=== PATIENT | male | born 1955 | race Caucasian/White ===

== ENCOUNTER 2018-03-04 05:15 | Inpatient (IN) | payer BC, OTHER ==
[~2018-03-04] VITALS: Ht 175.3 cm; Wt 69.9 kg
[2018-03-04] MEDS ORDERED: FAMOTIDINE 20 MG/2 ML ONE (05:40)
[2018-03-04] MEDS ORDERED: DIPHENHYDRAMINE 50 MG/ML, 1ML ONE (05:40)
[2018-03-04] MEDS ORDERED: FAMOTIDINE 20 MG TABLET ONE (05:53)
[2018-03-04] MEDS ORDERED: DIPHENHYDRAMINE 50 MG CAPSULE ONE (05:53)
[2018-03-04] MEDS ORDERED: FAMOTIDINE 20 MG TABLET PO ONE (06:00)
[2018-03-04] MEDS ORDERED: DIPHENHYDRAMINE 25 MG CAPSULE PO ONE (06:00)
[2018-03-04] MEDS ORDERED: HYDROmorphone 1 MG/ML, 1ML ONE (08:15)
[2018-03-04] MEDS ORDERED: ONDANSETRON ODT 4 MG ONE (08:17)
[2018-03-04] MEDS ORDERED: AMLO5TAB2 PO (08:29)
[2018-03-04] MEDS ORDERED: LISI1TAB7 PO (08:29)
[2018-03-04] MEDS ORDERED: AMOX-291 PO (08:29)
[2018-03-04] MEDS ORDERED: HYDR-3237 PO (08:29)
[2018-03-04] MEDS ORDERED: NABU500T PO (08:29)
[2018-03-04] MEDS ORDERED: ASPI81TA50 PO (08:29)
[2018-03-04] MEDS ORDERED: NAPR220C2 PO (08:29)
[2018-03-04] MEDS ORDERED: ONDANSETRON ODT 4 MG PO ONE (08:30)
[2018-03-04] MEDS ORDERED: HYDROmorphone 1 MG/ML, 1ML IV ONE (08:30)
[2018-03-04 10:08] VITALS: BP 160/80
[2018-03-04 13:12] VITALS: BP 134/79
[2018-03-04] MEDS ORDERED: POLYETHYLENE GLYCOL 17 GM PACKET PO PRN (13:30)
[2018-03-04] MEDS ORDERED: hydrALAzine 20 MG/ML, 1ML IVPush PRN (13:30)
[2018-03-04] MEDS ORDERED: ACETAMINOPHEN 325 MG TABLET PO PRN (13:30)
[2018-03-04] MEDS ORDERED: ONDANSETRON 2MG/ML, 2ML IVPush PRN (13:30)
[2018-03-04] MEDS ORDERED: NICOTINE 14MG/24 HR PATCH.TD24 TD SCH (13:30)
[2018-03-04] MEDS ORDERED: PROMETHAZINE 25 MG/ML, 1ML IM PRN (13:30)
[2018-03-04] MEDS ORDERED: HYDROcodone/APAP 5/325 TABLET PO PRN (13:30)
[2018-03-04] MEDS ORDERED: BISACODYL 10 MG SUPP PR PRN (13:30)
[2018-03-04] MEDS ORDERED: morphine SULFATE 10 MG/ML, 1ML IVPush PRN (13:30)
[2018-03-04] MEDS ORDERED: DOCUSATE 100 MG CAPSULE PO PRN (13:30)
[2018-03-04] MEDS ORDERED: ONDANSETRON ODT 4 MG PO PRN (13:30)
[2018-03-04] MEDS: HEPARIN 5,000 UNITS/ML, 1ML SQ SCH ×2 (14:01→21:42)
[2018-03-04] MEDS: SODIUM CHLORIDE 0.9% 1,000 ML IV SCH (14:01)
[2018-03-04 14:28] LABS: FREE T4 (FREE THYROXINE) 1.42 ng/dL (0.76-1.46); THYROID STIMULATING HORMONE 0.314 mIU/L (0.358-3.740)
[2018-03-04 14:52] LABS: HEMOGLOBIN A1C 5.6 % (4.2-6.3)
[2018-03-04 15:12] LABS: CREATININE 0.85 mg/dL (0.7-1.3)
[2018-03-04] MEDS ORDERED: MAGNESIUM SULFATE PMX 2GM/50ML 50 ML IV ONE (17:30)
[2018-03-04] MEDS ORDERED: MAGNESIUM SULF. PMX 20GM/500ML 50 ML IV ONE (17:30)
[2018-03-04] MEDS ORDERED: OMNIPAQUE 350 MG/ML, 75ML BOTTLE ONE (17:34)
[2018-03-04] MEDS: OXYcodone IR 5MG TABLET PO PRN (17:44)
[2018-03-04 20:11] VITALS: BP 128/76
[2018-03-05] MEDS: SODIUM CHLORIDE 0.9% 1,000 ML IV SCH (00:21)
[2018-03-05] MEDS: OXYcodone IR 5MG TABLET PO PRN (03:24)
[2018-03-05 03:51] VITALS: BP 164/84
[2018-03-05 05:38] LABS: CHLORIDE 88 mmol/L (98-107)
[2018-03-05 05:46] LABS: BASOPHILS # (AUTO) 0.03 x10^3/uL (0-0.1); BASOPHILS % (AUTO) 0 % (0-1); EOSINOPHILS # (AUTO) 0.06 x10^3/uL (0-0.4); EOSINOPHILS % (AUTO) 1 % (1-7); LYMPHOCYTES % (AUTO) 21 % (22-44); MD NO; MEAN CORPUSCULAR HEMOGLOBIN 32.4 pg (27.5-34.5); MEAN CORPUSCULAR HGB CONC 33.6 g/dL (33.2-36.2); MEAN CORPUSCULAR VOLUME 96.2 fL (81-97); MONOCYTES # (AUTO) 0.71 x10^3/uL (0.2-0.8); MONOCYTES % (AUTO) 8 % (2-9); NEUTROPHILS # (AUTO) 6.14 x10^3/uL (1.8-6.8); NEUTROPHILS % (AUTO) 70 % (42-75); PLATELET COUNT 417 x10^3/uL (130-400); RED CELL DISTRIBUTION WIDTH 12.8 % (9.4-14.8)
[2018-03-05 05:53] LABS: ALANINE AMINOTRANSFERASE 18 U/L (12-78); ALKALINE PHOSPHATASE 81 U/L (45-117); ANION GAP 10 mmol/L (5-15); BILIRUBIN,TOTAL 0.5 mg/dL (0.2-1.0); CALCIUM 8.7 mg/dL (8.5-10.1); CHOL/HDL RATIO 1.4; CHOLESTEROL, TOTAL 176 mg/dL (140-239); CREATININE 0.54 mg/dL (0.7-1.3); HDL CHOL % 72 % (26-37); HDL CHOLESTEROL (DIRECT) 127 mg/dL (40-60); LDL CHOLESTEROL,CALCULATED 38 mg/dL (54-169); LDL/HDL RATIO 0.3 (0.5-3.0); TOTAL PROTEIN 6.6 g/dL (6.4-8.2); TRIGLYCERIDES 56 mg/dL (50-200); VLDL CHOLESTEROL 11 mg/dL (0-25)
[2018-03-05] MEDS: HEPARIN 5,000 UNITS/ML, 1ML SQ SCH (05:59)
[2018-03-05 07:10] VITALS: BP 161/85
[2018-03-05] MEDS ORDERED: ASPIRIN 81 MG TABLET EC PO SCH (09:00)
[2018-03-05] MEDS ORDERED: HYDROCHLOROTHIAZIDE 25 MG TABLET PO SCH (09:00)
[2018-03-05] MEDS ORDERED: LISINOPRIL 20 MG TABLET PO SCH (09:00)
[2018-03-05] MEDS ORDERED: AMLODIPINE 5 MG TABLET PO SCH ×2 (09:00)
[2018-03-05] MEDS ORDERED: NABUMETONE 500 MG TABLET PO SCH (09:00)
[2018-03-05] MEDS ORDERED: POTASSIUM CHLORIDE 20 MEQ TAB.ER.PRT PO ONE (09:30)
[2018-03-05] MEDS ORDERED: MAGNESIUM CHLORIDE 64 MG TABLET.DR PO ONE (09:30)
[2018-03-05] MEDS ORDERED: HYDR25TA6 PO (11:41)
[2018-03-05] MEDS ORDERED: LOSA50TA6 PO (11:41)
[2018-03-05 11:56] VITALS: BP 147/81
== END 2018-03-05 13:15 | disposition home or self-care (01) | DRG 916 ==
LOC: ED 07:26 → EDIP 08:16 → 4NOR 10:04 → DCLOUNGE 03-05 12:57
PROVIDERS: ADMIT Hospitalist; ATTEND Hospitalist
DX: T78.3XXA Angioneurotic edema, initial encounter (principal); R13.10 Dysphagia, unspecified; F17.210 Nicotine dependence, cigarettes, uncomplicated; I10 Essential (primary) hypertension; J44.9 Chronic obstructive pulmonary disease, unspecified; T46.4X5A Adverse effect of angiotensin-converting-enzyme inhibitors, initial encounter; M25.511 Pain in right shoulder; M54.6 Pain in thoracic spine; G89.29 Other chronic pain; Y92.89 Other specified places as the place of occurrence of the external cause
CPT/HCPCS: 36415; 71046; 71260; 80053; 80061; 82565; 83036; 83735; 84439; 84443; 85025; 96374; J1170; J1644; Q0162; Q9967; J3475; J7030; J7512; Q0163